=== PATIENT | male | born 1955 | race Caucasian/White ===

== ENCOUNTER 2019-06-20 10:19 | Emergency (ER) | payer OTHER ==
[~2019-06-20] VITALS: Ht 175.3 cm; Wt 74.8 kg
[~2019-06-20 10:19] MED LIST: HYDACE5 PO
[2019-06-20] MEDS ORDERED: Valium5 MG PO (12:53)
[2019-06-20] MEDS ORDERED: Norco 5-325 Ta1 EACH PO (12:53)
[2019-06-20] MEDS ORDERED: Prednisone20 MG PO (12:53)
== END 2019-06-20 13:58 | disposition home or self-care (01) ==
LOC: ER 10:19
DX: M54.42 Lumbago with sciatica, left side (principal)
CPT/HCPCS: 72100; 96374; 96375; 99283-25; J1885; J3360